=== PATIENT | female | born 1950 | race African-American/Black ===

== ENCOUNTER → 2017-05-25 | Day surgery (SDC) | payer OTHER ==
[~2017-05-25] MED LIST: IBUPROFEN PO; LOSARTAN POTASS50 MG PO; METFORMIN HCL500 M1 PO
--- NOTE | ~2017-05-25 | OR ---
Unit #: [id number] #: [id number] Patient: WILLIAM SHETTY [id number] [facility]. [place], [place] [address] [id number] MR#: [id number] NAME: WILLIAM SHTETY ROOM: Date of Procedure: 05/25/2017 Admission Date: 05/25/2017 Surgeon: Juancarlos Agustin M.D. : 1950 Attending Physician: Juancarlos Agustin M.D. Primary Care Physician: Anushka Harris M.D. PROCEDURE OPERATIVE NOTE PREOPERATIVE DIAGNOSIS Colorectal cancer surveillance; the patient has family history of colon cancer in her mother who had colon cancer at the age of 60. PROCEDURE Colonoscopy up to cecum and terminal ileum with excellent preparation and good visualization. POSTOPERATIVE DIAGNOSIS Completely normal examination up to the cecum and terminal ileum. The quality of the prep was excellent. No polyps, diverticula or hemorrhoids were seen. RECOMMENDATIONS Repeat colonoscopy in 5 years. SEDATION USED MAC. PROCEDURE DESCRIPTION Following detailed explanation of the potential risks and complications of a colonoscopy - namely perforation, bleeding and complications of sedation - the patient was brought to the GI lab and laid in the left lateral decubitus position. A digital rectal examination was performed, which was normal. The lubricated tip of the Olympus video colonoscope was inserted through the anus and advanced under direct vision. The scope was advanced past the rectosigmoid into the descending colon. No diverticula were noted in this area. The scope tip was then navigated all the way up to the cecum with visualization of the ileocecal valve and the appendiceal orifice. Preparation was excellent with good visualization. Photo documentation was obtained. The last few inches of the terminal ileum were also visualized and appeared normal. Successive segments of the colonic mucosa were examined upon withdrawal and appeared unremarkable, there being no polyps, mass lesions, AVMs or diverticula. The patient did not have any hemorrhoids in the anal verge. The scope was then withdrawn. The patient returned to the recovery area. She tolerated the procedure without any postprocedure complications. Dictated by... Juancarlos Agustin M.D. Unit #: [id number] #: [id number] Patient: WILLIAM SHETTY ARCELIA/mohan TD: 05/25/2017 12:33 JOB #: [id number] PROCEDURE OPERATIVE NOTE Page 1 of 1 X Juancarlos Agustin MD PROCEDURE OPERATIVE NOTE
== END | disposition home or self-care (01) ==
LOC: COPS 07:57
DX: Z12.11 Encounter for screening for malignant neoplasm of colon (principal); E11.9 Type 2 diabetes mellitus without complications; M48.00 Spinal stenosis, site unspecified; M13.851 Other specified arthritis, right hip; I10 Essential (primary) hypertension; Z80.0 Family history of malignant neoplasm of digestive organs; Z88.5 Allergy status to narcotic agent; Z98.51 Tubal ligation status; Z90.710 Acquired absence of both cervix and uterus; Z96.642 Presence of left artificial hip joint; Z79.84 Long term (current) use of oral hypoglycemic drugs; Z79.899 Other long term (current) drug therapy
CPT/HCPCS: 82947; J2250